=== PATIENT | female | born 1995 | race Two or more races ===

== ENCOUNTER 2024-06-16 09:55 | Inpatient (IN) | payer OTHER ==
[2024-06-16 10:57] LABS: INR 1.03 (0.83-1.09); PROTHROMBIN TIME (PATIENT) 11.3 SEC (9.7-13.0)
[2024-06-16 10:59] LABS: ACTIVATED PTT 28.9 SECONDS (25.2-36.5)
[2024-06-16 11:03] VITALS: BMI 46.1
[2024-06-16 11:22] LABS: POTASSIUM 3.8 mmol/L (3.5-5.1)
[2024-06-16 11:23] LABS: CALCIUM 8.3 mg/dL (8.5-10.1)
[2024-06-16 11:24] LABS: BLOOD UREA NITROGEN 9.6 mg/dL (7-18)
[2024-06-16 11:27] LABS: CREATININE 0.6 mg/dL (0.55-1.3)
[2024-06-16 11:29] LABS: ABSOLUTE IMMATURE GRANULOCYTES 0.06 x10^3/uL (0.0-0.031); BASOPHILS # 0.05 x10^3/uL (0.01-0.08); EOSINOPHIL % 1.1 % (0.7-5.8); HEMATOCRIT 33.9 % (34.1-44.9); HEMOGLOBIN 10.7 g/dL (11.2-15.7); MCHC 31.6 g/dl (32.2-35.5); MEAN CELL VOLUME 89.4 fl (79.4-94.8); MEAN PLT VOLUME 11.1 fl (9.4-12.3); MONOCYTE # 0.53 x10^3/uL (0.24-0.86); MONOCYTE % 5.9 % (4.7-12.5); PLATELET COUNT 208 x10^3/uL (182-369); RDW 15.2 % (12.1-16.5)
[2024-06-16] MEDS ORDERED: OXYTOCIN 30 UNITS in 0.9% NS 30 UNIT/500 ML INFUS.BAG IVPB ONE (14:04)
[2024-06-16] MEDS: ELECTROLYTE-148 SOLN 1,000 ML IV SCH (14:29)
[2024-06-16] MEDS: OXYTOCIN 30 UNITS in 0.9% NS 30 UNIT/500 ML INFUS.BAG IVPB SCH (14:30)
[2024-06-16] MEDS ORDERED: PENICILLIN G POTASSIUM 5,000,000 (5Mm) UNIT VIAL IVPB ONE (17:50)
[2024-06-16] MEDS ORDERED: PENICILLIN G POTASSIUM 5,000,000 UNIT/250 ML BAG IVPB ONE (17:55)
[2024-06-16] MEDS ORDERED: PENICILLIN G POTASSIUM 5,000,000 (5Mm) UNIT VIAL IVPB SCH (18:00)
[2024-06-16] MEDS: PENICILLIN G POTASSIUM 5,000,000 PRE-DOCK IN NS 250 ML IVPB ONE (18:03)
[2024-06-16] MEDS: PENICILLIN G POTASSIUM 2,500,000 UNIT in SODIUM CHLORIDE 100 ML IVPB SCH (22:00)
[2024-06-16 22:12] LABS: SYPHILIS W/ RPR CONF NON-REACTIVE (NONREACTIVE)
[2024-06-16 22:41] LABS: HCV DIAGNOSTIC IN-HOUSE W/RFLX NON-REACTIVE (NONREACTIVE)
[2024-06-17 01:24] VITALS: RESP 18
[2024-06-17] MEDS ORDERED: FENTANYL/BUPIVACAINE/NS/PF - PCEA - 50 ML DISP.SYRIN EP ONE ×2 (02:06→07:18)
[2024-06-17] MEDS ORDERED: FENTANYL CITRATE/PF 50 MCG/ML VIAL ONE (02:08)
[2024-06-17] MEDS ORDERED: BUPIVACAINE HCL/PF 0.25% (2.5MG/ML) 10 ML VIAL ONE (02:08)
[2024-06-17] MEDS: FENTANYL/BUPIVACAINE/NS/PF - PCEA - 50 ML DISP.SYRIN EP SCH (02:45)
[2024-06-17] MEDS ORDERED: NALOXONE HCL 0.4 MG/ML VIAL IVPUSH PRN (02:53)
[2024-06-17] MEDS ORDERED: OXYTOCIN 20 UNITS in 0.9% NS 20 UNIT/1,000 ML INFUS.BAG IV ONE (07:44)
[2024-06-17] MEDS ORDERED: LIDOCAINE HCL 1% PRESERVATIVE FREE - 30ML VIAL ONE (07:44)
[2024-06-17] MEDS ORDERED: ACETAMINOPHEN 325 MG TABLET (FP) PO PRN (08:17)
[2024-06-17] MEDS ORDERED: METHYLERGONOVINE MALEATE 0.2 MG/1 ML AMP IM PRN (08:17)
[2024-06-17] MEDS ORDERED: BENZOCAINE 28 GM HEMORRHOIDAL OINTMENT TP PRN (08:17)
[2024-06-17] MEDS ORDERED: WITCH HAZEL 50% (TUCKS) 40 PAD/JAR PAD TP PRN (08:17)
[2024-06-17] MEDS ORDERED: oxyCODONE HCL 5 MG TABLET PO PRN (08:17)
[2024-06-17] MEDS ORDERED: BISACODYL 10 MG SUPP.RECT RC PRN (08:17)
[2024-06-17] MEDS: OXYTOCIN 20 UNITS in 0.9% NS 20 UNIT/1,000 ML INFUS.BAG IV SCH (08:30)
[2024-06-17 09:05] LABS: CORD BASE EXCESS -2.9 mmol/L (0-2); CORD HCO3 21.5 mmHg (20-29); CORD PCO2 36.6 mmHg (30-78); CORD pH 7.386 (7.14-7.44)
[2024-06-17] MEDS: PROMETHAZINE HCL 25 MG/1 ML VIAL IVPB ONE (09:50)
[2024-06-17] MEDS: BUTORPHANOL TARTRATE 2 MG/ML VIAL IVPB ONE (09:50)
[2024-06-17] MEDS: BENZOCAINE 20% 57 GM BOTTLE TP PRN (12:05)
[2024-06-17] MEDS: PRENATAL VITAMINS W/ FOLIC ACID TABLET (FP) PO SCH (12:06)
[2024-06-17] MEDS: FERROUS SO4 325 MG TABLET (FP) PO SCH (12:06)
[2024-06-17] MEDS: IBUPROFEN 600 MG TABLET (FP) PO PRN (12:06)
[2024-06-17 15:20] LABS: HIV INTERPRETATION NEGATIVE (NEGATIVE)
[2024-06-18 07:42] LABS: ABSOLUTE IMMATURE GRANULOCYTES 0.11 x10^3/uL (0.0-0.031); BASOPHILS # 0.05 x10^3/uL (0.01-0.08); EOSINOPHIL % 1.6 % (0.7-5.8); EOSINOPHILS # 0.16 x10^3/uL (0.04-0.36); HEMATOCRIT 30.5 % (34.1-44.9); HEMOGLOBIN 9.5 g/dL (11.2-15.7); MCHC 31.1 g/dl (32.2-35.5); MEAN CELL VOLUME 92.7 fl (79.4-94.8); MONOCYTE # 0.74 x10^3/uL (0.24-0.86); MONOCYTE % 7.5 % (4.7-12.5); PLATELET COUNT 185 x10^3/uL (182-369); RDW 15.3 % (12.1-16.5)
[2024-06-18] MEDS ORDERED: SENNOSIDES/DOCUSATE COMBO (SENNA PLUS) TABLET (UD) PO PRN (22:00)
[2024-06-18 23:11] VITALS: TEMP 98.1
[2024-06-19 08:27] VITALS: BP 109/55; PULSE 76
== END 2024-06-19 14:15 | disposition home or self-care (01) | DRG 560 ==
LOC: JLDR 09:55 → J3W 06-17 10:50
PROVIDERS: ADMIT Specialist; ATTEND Specialist
PROC: 10E0XZZ Delivery of Products of Conception, External Approach (ICD-10-PCS; principal; 2024-06-17)
DX: O48.0 Post-term pregnancy (principal); O99.213 Obesity complicating pregnancy, third trimester; Z3A.40 40 weeks gestation of pregnancy; Z37.0 Single live birth
CPT/HCPCS: 36415; 36600; 59409; 80048; 82803; 85025; 85610; 85730; 86780; 86803; 86850; 86900; 86901; 87389